=== PATIENT | female | born 1960 | race Caucasian/White ===

== ENCOUNTER → 2019-06-20 | Outpatient (CLI) | payer BC ==
--- NOTE | 2019-06-20 11:21 | KCIC ---
MRI Brain without contrast History: Dystonic tremor, torticollis, progressive head tremor Technique: Multiplanar, multisequential noncontrast MR imaging was performed of the brain. Comparison: None Findings: There is some motion degradation. There is no evidence of recent infarct or cytotoxic edema. The ventricles, sulci, and cisterns are within normal limits in size and configuration. There is no significant midline shift, intraaxial mass effect, or focal abnormal extra-axial fluid collection. There is moderate T2 and FLAIR hyperintense abnormality of the kait, very mild scattered T2 and FLAIR hyperintense signal abnormality of the supratentorial parenchyma bilaterally. There is no significant hemosiderin deposition the brain parenchyma. There is preservation of the major intracranial flow-voids at the skull base. There is patchy minimal fluid of the left mastoid air cells.The cerebellar tonsils are normal in location. There is no significant abnormality of the pineal gland or pituitary gland. There is very minimal bilateral ethmoid air cell and left maxillary sinus mucosal thickening. There is preserved marrow signal of the clivus. There is minimal nonspecific fluid associated with the occipital condylar C1 articulations greater on the right, more likely be reactive/degenerative in etiology. Impression: 1. There is no evidence of recent infarct or mass effect. There is moderate T2 and FLAIR hyperintense signal abnormality of the kait and very minimally of the supratentorial parenchyma, nonspecific findings possibly due to chronic vascular ischemic disease. Pattern is not particularly suggestive of an inflammatory demyelinating disease. Electronically signed by: David Grant MD (06/20/2019 11:18 AM) [id number]
== END | disposition home or self-care (01) ==
LOC: KCIC MRI 10:08
PROVIDERS: ATTEND Psychiatry & Neurology Neurology with Special Qualifications in Child Neurology
DX: G25.2 Other specified forms of tremor (principal); M43.6 Torticollis
CPT/HCPCS: 70551

== ENCOUNTER → 2021-04-30 | Outpatient (CLI) | payer BC ==
[2021-04-30 14:28] LABS: BASO # 0.1 x10^3/uL (0.0-0.2); BASO % 3 % (0-3); EOS % 1 % (0-3); HEMATOCRIT 41.8 % (36.0-47.0); HEMOGLOBIN 14.3 g/dL (12.0-15.5); LYMPH % 21 % (24-48); MEAN CORPUSCULAR HEMOGLOBIN 32 pg (25-35); MEAN CORPUSCULAR HGB CONC 34 g/dL (31-37); MEAN CORPUSCULAR VOLUME 95 fL (79-100); MONO # 0.5 x10^3/uL (0.0-1.1); MONO % 10 % (0-9); NEUT # 3.3 x10^3/uL (1.8-7.7); NEUT % 66 % (31-73); PLATELET COUNT 205 x10^3/uL (140-400); RED BLOOD COUNT 4.42 x10^6/uL (3.50-5.40); RED CELL DISTRIBUTION WIDTH 12.9 % (11.5-14.5)
[2021-05-01 16:09] LABS: KAPPA LAMBDA RATIO 2.17 (0.26-1.65); LAMBDA FREE 25.3 mg/L (5.7-26.3)
[2021-05-03 15:15] LABS: COMMENT IMMUNOFIX SERUM Note: (.); IMMUNOGLOBULIN A 201 mg/dL (87-352); IMMUNOGLOBULIN G 2299 mg/dL (586-1602); IMMUNOGLOBULIN M 73 mg/dL (26-217)
[2021-05-03 16:15] LABS: ALBUM 3.8 g/dL (2.9-4.4); ALPHA 1 0.3 g/dL (0.0-0.4); ALPHA 2 0.7 g/dL (0.4-1.0); BETA 0.9 g/dL (0.7-1.3); GAMMA 2.4 g/dL (0.4-1.8); PROTEIN TOTAL 8.1 g/dL (6.0-8.5); SPEP AG RATIO 0.9 (0.7-1.7)
== END ==
LOC: ONCLAB 13:33
PROVIDERS: ATTEND Internal Medicine Hematology & Oncology
DX: D47.2 Monoclonal gammopathy (principal)
CPT/HCPCS: 36415; 82784; 83520; 84165; 85025; 86334

== ENCOUNTER → 2021-10-29 | Outpatient (CLI) | payer BC ==
[2021-10-29 13:49] LABS: BASO # 0.1 x10^3/uL (0.0-0.2); BASO % 1 % (0-3); EOS % 1 % (0-3); HEMOGLOBIN 13.6 g/dL (12.0-15.5); LYMPH # 1.1 x10^3/uL (1.0-4.8); LYMPH % 22 % (24-48); MEAN CORPUSCULAR HEMOGLOBIN 31 pg (25-35); MEAN CORPUSCULAR HGB CONC 33 g/dL (31-37); MEAN CORPUSCULAR VOLUME 94 fL (79-100); MONO # 0.5 x10^3/uL (0.0-1.1); MONO % 11 % (0-9); NEUT # 3.3 x10^3/uL (1.8-7.7); NEUT % 66 % (31-73); PLATELET COUNT 201 x10^3/uL (140-400); RED BLOOD COUNT 4.34 x10^6/uL (3.50-5.40); RED CELL DISTRIBUTION WIDTH 12.9 % (11.5-14.5)
[2021-10-29 14:02] LABS: CALCIUM 8.3 mg/dL (8.5-10.1); CREATININE 0.7 mg/dL (0.6-1.0); GFR 85.4; POTASSIUM 4.7 mmol/L (3.5-5.1)
[2021-10-29 14:09] LABS: ALBUMIN 3.4 g/dL (3.4-5.0); ALBUMIN/GLOBULIN RATIO 0.7 (1.0-1.7); TOTAL BILIRUBIN 0.3 mg/dL (0.2-1.0); TOTAL PROTEIN 8.3 g/dL (6.4-8.2)
[2021-10-30 16:11] LABS: KAPPA FREE 52.2 mg/L (3.3-19.4); LAMBDA FREE 23.7 mg/L (5.7-26.3)
[2021-11-01 23:10] LABS: ALBUM 3.6 g/dL (2.9-4.4); ALPHA 1 0.2 g/dL (0.0-0.4); ALPHA 2 0.7 g/dL (0.4-1.0); BETA 0.8 g/dL (0.7-1.3); GAMMA 2.2 g/dL (0.4-1.8); PROTEIN TOTAL 7.6 g/dL (6.0-8.5); SPEP AG RATIO 0.9 (0.7-1.7)
== END ==
LOC: ONCLAB 13:00
PROVIDERS: ATTEND Internal Medicine Hematology & Oncology
DX: D47.2 Monoclonal gammopathy (principal)
CPT/HCPCS: 36415; 80053; 83520; 84165; 85025